=== PATIENT | female | born 1975 | race Caucasian/White ===

== ENCOUNTER → 2019-01-21 | Outpatient (CLI) | payer SELFPAY ==
--- NOTE | 2019-01-21 12:17 | Diagnostic Imaging Report ---
PROCEDURE: MRI lumbar spine. TECHNIQUE: Multiplanar, multisequence MRI of the lumbar spine was performed without contrast. INDICATION: Low back pain, left leg numbness. COMPARISON: There are no prior studies available for comparison. FINDINGS: The T2 parasagittal images show the vertebral body heights and alignment to be generally within normal limits. The intervertebral spaces are fairly well-maintained although there is desiccation of the disc at L4-5 and L5-S1. At the L5-S1 level, there is a focal disc bulge to the left. The disc compresses the left ventral aspect of the thecal sac and narrows the AP diameter to 9.9 mm. There is also mild narrowing of the neural foramen on the left at this level. At the L4-5 level, there is a broad-based disc bulge centrally. The disc flattens the ventral aspect of the thecal sac and narrows the AP diameter to 9.5 mm. There is also mild narrowing of the neural foramen on the left at this level. At the L3-4 level, there is a slight disc bulge centrally. The AP diameter of the thecal sac is narrowed to 10.3 mm. There is no significant neural foraminal narrowing. There is no evidence for spinal stenosis or nerve root encroachment at L1-L2 or L2-3. There is no abnormal signal arising from the cord or the vertebral bodies to indicate an acute abnormality. There is no sign of a paraspinal mass. IMPRESSION: 1. There is degenerative disc disease at L4-5 and L5-S1. There is mild central stenosis at both these levels and there is mild narrowing of the neural foramen on the left as well. 2. The remainder of the lumbar spine is unremarkable for spinal stenosis or nerve root encroachment. 3. There is no sign of an acute bony abnormality or of a cord lesion. Dictated by: Dictated on workstation # [id number]
== END ==
LOC: RAD 10:49
PROVIDERS: ATTEND Nurse Practitioner Family
DX: M51.17 Intervertebral disc disorders with radiculopathy, lumbosacral region (principal); M48.07 Spinal stenosis, lumbosacral region
CPT/HCPCS: 72148

== ENCOUNTER 2019-06-11 14:24 | Emergency (ER) | payer SELFPAY ==
[~2019-06-11] VITALS: Ht 162.6 cm; Wt 127.0 kg
[2019-06-11 14:45] LABS: BASOPHILS % (AUTO) 0 % (0-10); EOSINOPHILS % (AUTO) 0 % (0-10); HEMATOCRIT 42 % (35-52); HEMOGLOBIN 14.2 G/DL (11.5-16.0); LYMPHOCYTES # (AUTO) 2.6 X 10^3 (1.0-4.0); LYMPHOCYTES % (AUTO) 13 % (12-44); MEAN CORPUSCULAR HEMOGLOBIN 29 PG (25-34); MEAN CORPUSCULAR HGB CONC 34 G/DL (32-36); MEAN CORPUSCULAR VOLUME 67 FL (80-99); MEAN PLATELET VOLUME 9.8 FL (7.4-10.4); MONOCYTES % (AUTO) 10 % (0-12); NEUTROPHILS # (AUTO) 15.8 X 10^3 (1.8-7.8); NEUTROPHILS % (AUTO) 77 % (42-75); PLATELET COUNT 477 10^3/uL (130-400); RED CELL DISTRIBUTION WIDTH 15.7 % (10.0-14.5); WHITE BLOOD COUNT 20.6 10^3/uL (4.3-11.0)
[2019-06-11] MEDS ORDERED: ORPHENADRINE 60 MG/2 ML (NORFLEX) AMP IM ONE (14:45)
[2019-06-11 14:46] LABS: BASOPHILS # (AUTO) 0.1 10^3/uL (0.0-0.1); EOSINOPHILS # (AUTO) 0.1 10^3/uL (0.0-0.3)
--- NOTE | 2019-06-11 14:46 | ED Back Pain ---
General Chief Complaint: Back Problems Stated Complaint: LT LEG NUMBNESS Source of Information: Patient, Spouse Exam Limitations: No Limitations History of Present Illness Date Seen by Provider: Jun 11, 2019 Time Seen by Provider: 14:24 Initial Comments The patient presents to ER by private conveyance with chief complaint that yesterday she began experiencing some progressively worsening pain in her right leg radiating around from her hip down the back of her leg to just below the level of her knee. She is followed by [facility] and has a history of chronic back pain for which she uses ibuprofen 800 mg. She used 2 tablets at 4:00 this morning with minimal relief. She has a history of imaging of her back demonstrating bulging disks in her back. She says she cannot afford surgery for them. She says she does not have any recent trauma, falls, car wrecks. She was doing her normal housework when the pain started to come on and it has just gotten worse to the point now she says is very painful to move her leg or stand up. She has sensation in her feet bilaterally although she feels diminished on the right leg and foot. She denies any other medical history. She does not use opiates or muscle relaxants. She was last on steroids about 3 or 4 months ago. She has had an occasional cough nonproductive. Allergies and Home Medications Allergies Coded Allergies: No Known Drug Allergies (Unverified , 06/11/19) Patient Home Medication List Home Medication List Reviewed: Yes Review of Systems Constitutional: No chills, No diaphoresis EENTM: No ear discharge, No ear pain Respiratory: No cough, No short of breath Cardiovascular: No chest pain, No edema Gastrointestinal: No abdominal pain, No nausea, No vomiting Genitourinary: No discharge, No dysuria : No LMP: Jun 01, 2019 Control/STD Prophylaxis: None Past Awkflch-Flxced-Htfhgd Hx Patient Social History Alcohol Use: Denies Use Recreational Drug Use: No Smoking Status: Current Everyday Smoker Type Used: Cigarettes Past Medical History Section (x2) Physical Exam Vital Signs Vital Signs - First Documented 06/11/19 14:30 Temp 98.1 Pulse 101 Resp 22 B/P (MAP) 188/94 (125) Pulse Ox 96 O2 Delivery Room Air Capillary Refill : Height, Weight, BMI Height: '" Weight: lbs. oz. kg; BMI Method: General Appearance: WD/WN, Moderate Distress (tearful) HEENT: Pharynx Normal, Moist Mucous Membranes Neck: Full Range of Motion, Normal Inspection, Non Tender Cardiovascular: Regular Rate, Rhythm, No Edema, Normal Peripheral Pulses Respiratory: No Accessory Muscle Use, No Respiratory Distress Peripheral Pulses: 2+ Dorsalis Pedis (R), 2+ Left Dors-Pedis (L) Back: Normal Inspection, No CVA Tenderness, Vertebral Tenderness (lumbar spine and paravertebral spinous muscles and spasm as well as tender to palpation) Extremity: Normal Capillary Refill, Normal Inspection, Normal Range of Motion, Non Tender, No Calf Tenderness, No Pedal Edema Neurologic/Psychiatric: Alert, Oriented x3, Sensory Deficit (sensation decreased right leg compared to left still able to feel light touch on the feet.), Other (bilateral patellar reflexes 2 out of 4, symmetric) Skin: Normal Color, Warm/Dry Progress/Results/Core Measures Results/Orders Lab Results Laboratory Tests Test 06/11/19 14:30 06/11/19 15:10 Range/Units White Blood Count 20.6 H 4.3-11.0 10^3/uL Red Blood Count 4.84 4.35-5.85 10^6/uL Hemoglobin 14.2 11.5-16.0 G/DL Hematocrit 42 35-52 % Mean Corpuscular Volume 67 L 80-99 FL Mean Corpuscular Hemoglobin 29 25-34 PG Mean Corpuscular Hemoglobin Concent 34 32-36 G/DL Red Cell Distribution Width 15.7 H 10.0-14.5 % Platelet Count 477 H 130-400 10^3/uL Mean Platelet Volume 9.8 7.4-10.4 FL Neutrophils (%) (Auto) 77 H 42-75 % Lymphocytes (%) (Auto) 13 12-44 % Monocytes (%) (Auto) 10 0-12 % Eosinophils (%) (Auto) 0 0-10 % Basophils (%) (Auto) 0 0-10 % Neutrophils # (Auto) 15.8 H 1.8-7.8 X 10^3 Lymphocytes # (Auto) 2.6 1.0-4.0 X 10^3 Monocytes # (Auto) 2.0 H 0.0-1.0 X 10^3 Eosinophils # (Auto) 0.1 0.0-0.3 10^3/uL Basophils # (Auto) 0.1 0.0-0.1 10^3/uL Neutrophils % (Manual) 70 % Lymphocytes % (Manual) 18 % Monocytes % (Manual) 11 % Eosinophils % (Manual) 0 % Basophils % (Manual) 0 % Band Neutrophils 1 % Blood Morphology Comment NORMAL Sodium Level 138 135-145 MMOL/L Potassium Level 3.9 3.6-5.0 MMOL/L Chloride Level 99 98-107 MMOL/L Carbon Dioxide Level 19 L 21-32 MMOL/L Anion Gap 20 H 5-14 MMOL/L Blood Urea Nitrogen 4 L 7-18 MG/DL Creatinine 0.72 0.60-1.30 MG/DL Estimat Glomerular Filtration Rate > 60 BUN/Creatinine Ratio 6 Glucose Level 138 H 70-105 MG/DL Calcium Level 9.5 8.5-10.1 MG/DL Corrected Calcium 9.2 8.5-10.1 MG/DL Total Bilirubin 0.4 0.1-1.0 MG/DL Aspartate Amino Transf (AST/SGOT) 13 5-34 U/L Alanine Aminotransferase (ALT/SGPT) 11 0-55 U/L Alkaline Phosphatase 81 40-136 U/L Total Protein 7.9 6.4-8.2 GM/DL Albumin 4.4 3.2-4.5 GM/DL Urine Color YELLOW Urine Clarity CLEAR Urine pH 7.0 5-9 Urine Specific [place] <1.005 1.016-1.022 Urine Protein NEGATIVE NEGATIVE Urine Glucose (UA) NEGATIVE NEGATIVE Urine Ketones NEGATIVE NEGATIVE Urine Nitrite NEGATIVE NEGATIVE Urine Bilirubin NEGATIVE NEGATIVE Urine Urobilinogen 0.2 NORMAL MG/DL Urine Leukocyte Esterase NEGATIVE NEGATIVE Urine RBC (Auto) 2+ H NEGATIVE Urine RBC 2-5 H /HPF Urine WBC NONE /HPF Urine Squamous Epithelial Cells >50 H /HPF Urine Crystals NONE /LPF Urine Bacteria TRACE /HPF Urine Casts NONE /LPF Urine Mucus NEGATIVE /LPF Urine Culture Indicated NO My Orders Orders - EVELINA WRIGHT Ua Culture If Indicated (06/11/19 14:32) Urine Bedside (06/11/19 14:32) Cbc With Automated Diff (06/11/19 14:32) Comprehensive Metabolic Panel (06/11/19 14:32) Ed Iv/Invasive Line Start (06/11/19 14:32) Ketorolac Injection (Toradol Injection) (06/11/19 14:45) Orphenadrine Injection (Norflex Injectio (06/11/19 14:45) Manual Differential (06/11/19 14:30) Orphenadrine Injection (Norflex Injectio (06/11/19 15:00) Chest 1 View Ap/Pa Only (06/11/19 15:04) Medications Given in ED Current Medications Medications Dose Ordered Sig/Kehinde Route Start Time Stop Time Status Last Admin Dose Admin Ketorolac Tromethamine 30 mg ONCE ONCE IVP 06/11/19 14:45 06/11/19 14:46 DC 06/11/19 14:56 30 MG Orphenadrine Citrate 60 mg ONCE ONCE IV 06/11/19 15:00 06/11/19 15:01 DC 06/11/19 14:58 60 MG Vital Signs/I&O 06/11/19 14:30 Temp 98.1 Pulse 101 Resp 22 B/P (MAP) 188/94 (125) Pulse Ox 96 O2 Delivery Room Air Progress Progress Note #1: Time: 14:39 Progress Note Suspect she is having sciatica/radiculopathy secondary to her chronic back issues. We'll start with Toradol, Norflex and check some basic labs and urinalysis to rule out infection. No other previous history to go off of. Apparently She has presented to the ER in the past for lumbago with sciatica but there is no associated note. MRI from January 2019: Degenerative disc disease at L4-5 and L5-S1. There is mild central stenosis of both these levels and there is mild narrowing of the neural foramen on the left as well. The remainder of the lumbar spine unremarkable for spinal stenosis or nerve root encroachment. There is no sign of acute bony abdomen mildly of her vocal cord lesion. Added a chest x-ray to workup her leukocytosis secondary to cough. She's not been on steroids recently. Would like to use steroids to help calm down her back if there is no evidence of an active infection. Progress Note #2: Time: 15:47 Progress Note She has had significant improvement in her pain. Plan to set her up with Depo- Medrol, azithromycin outpatient for possible bronchitis versus occult pneumonia, NSAIDs Tylenol creams back brace and follow-up with primary care. Diagnostic Imaging Diagonstic Imaging: Xray Plain Films/CT/US/NM/MRI: chest (1v) Comments No acute cardiopulmonary processes noted on one view chest x-ray. NAME: KEZIA MERRITT MED REC#: [id number] PT STATUS: REG ER : 1975 PHYSICIAN: EVELINA WRIGHT MD ADMIT DATE: 06/11/19/ER FS Draft Date of Exam:06/11/19 CHEST 1 VIEW AP/PA ONLY INDICATION: Severe lower back pain. COMPARISON: None. FINDINGS: Single frontal view of the chest demonstrates normal heart size and pulmonary vascularity. The lungs are well aerated and clear. No large pleural effusion or pneumothorax is seen. The visualized osseous structures show no acute abnormalities. IMPRESSION: 1. No acute cardiopulmonary process. Dictated on workstation # [id number] Dict: 06/11/19 1521 Trans: 06/11/19 1525 [id number] Interpreted by: MICHAEL JOSE MD Electronically signed by: Reviewed: Reviewed by Me Departure Impression Primary Impression: Lumbago with sciatica, right side Qualified Codes: M54.41 - Lumbago with sciatica, right side Additional Impression: Bronchitis Disposition: 01 HOME, SELF-CARE Condition: Stable Departure-Patient Inst. Decision time for Depature: 15:28 Referrals: ARVIN BOYER MD (PCP) Primary Care Physician GLADIS BRADLEY APRN (Family) Primary Care Physician Patient Instructions: Low Back Pain (DC), Sciatica (DC) Add. Discharge Instructions: You have some narrowing of the spinal canal that's pressing on the nerves as they leave the back and this has been aggravated the last couple days leading to the pain and tingling that you're feeling. We tried to do anti-inflammatory medications such as steroids, NSAIDs like Na prosyn or ibuprofen and other pain medicines to control your symptoms. The prednisone will take 12-24 hours to start taking an and reducing inflammation. You should take 2 tablets twice a day for 3 days. Then take one tablet of prednisone twice daily for 3 days. Finally one tablet daily for 3 days. This may also help with your bronchitis however if you develop fevers, productive cough or difficulty breathing then you should follow-up with your primary doctor for reevaluation for pneumonia. Instead of taking ibuprofen you should use the prescription naproxen 1 tablet twice daily on a schedule for the next 2 weeks. If you have spasms in your back or feel that your muscles are very tight then you can use the cyclobenzaprine 1 tablet every 8 hours as needed. For breakthrough pain you can use Tylenol 1000 mg every 8 hours as needed. You should use topical creams with Capsaicin oil and/or lidocaine such as Aspercreme, icy hot, Biofreeze etc. If you can get a back brace this can be very helpful for reducing the incidence of muscle spasms in your back and helping your back feel better sooner. Wear it on the days that it helps. All discharge instructions reviewed with patient and/or family. Voiced understanding. Scripts Cyclobenzaprine HCl (Cyclobenzaprine HCl) 10 Mg Tablet 10 MG PO Q8H PRN for SPASMS, #15 TAB 0 Refills Prov: EVELINA WRIGHT 06/11/19 Prednisone (Prednisone) 20 Mg Tab 40 MG PO BID for 9 Days, #21 TAB 0 Refills Prov: EVELINA WRIGHT 06/11/19 Azithromycin (Azithromycin) 250 Mg Tablet 250 MG PO UD, #6 TAB 0 Refills TAKE 2 TABLETS ON DAY ONE THEN TAKE 1 TABLET DAILY FOR FOUR MORE DAYS Prov: EVELINA WRIGHT 06/11/19 Naproxen (Naprosyn) 500 Mg Tablet 500 MG PO BID for 14 Days, #30 TAB 0 Refills Prov: EVELINA WRIGHT 06/11/19 Back Brace (Back Stabilizer) 1 Each Each EACH MC for Back Pain, #1 0 Refills Wear it on the days that it helps. Prov: EVELINA WRIGHT 06/11/19 EVELINA WRIGHT Jun 11, 2019 14:46
[2019-06-11] MEDS: KETOROLAC 30 MG/ML VIAL IVP ONE (14:56)
[2019-06-11 14:57] LABS: ALANINE AMINOTRANSFERASE 11 U/L (0-55); ALBUMIN 4.4 GM/DL (3.2-4.5); ALKALINE PHOSPHATASE 81 U/L (40-136); BILIRUBIN,TOTAL 0.4 MG/DL (0.1-1.0); BUN/CREATININE RATIO 6; CALCIUM 9.5 MG/DL (8.5-10.1); CARBON DIOXIDE 19 MMOL/L (21-32); CHLORIDE 99 MMOL/L (98-107); CREATININE SERUM 0.72 MG/DL (0.60-1.30); GFR ESTIMATED > 60; GLUCOSE 138 MG/DL (70-105); POTASSIUM 3.9 MMOL/L (3.6-5.0); SODIUM 138 MMOL/L (135-145); TOTAL PROTEIN 7.9 GM/DL (6.4-8.2)
[2019-06-11] MEDS: ORPHENADRINE 60 MG/2 ML (NORFLEX) AMP IV ONE (14:58)
[2019-06-11 15:23] LABS: BACTERIA,URINE TRACE /HPF; BILIRUBIN,URINE NEGATIVE (NEGATIVE); CLARITY,URINE CLEAR; COLOR,URINE YELLOW; GLUCOSE, URINE (UA) NEGATIVE (NEGATIVE); KETONES,URINE NEGATIVE (NEGATIVE); LEUKOCYTE ESTERASE ,URINE NEGATIVE (NEGATIVE); NITRITE,URINE NEGATIVE (NEGATIVE); PROTEIN,URINE NEGATIVE (NEGATIVE); SQUAMOUS EPITHELIAL CELL,UR >50 /HPF; UROBILINOGEN,URINE 0.2 MG/DL (NORMAL)
[2019-06-11 15:23] LABS: BAND NEUTROPHILS 1 %; BASOPHILS % (MANUAL) 0 %; EOSINOPHILS % (MANUAL) 0 %; LYMPHOCYTES % (MANUAL) 18 %; MONOCYTES % (MANUAL) 11 %; NEUTROPHILS % (MANUAL) 70 %
[2019-06-11 15:24] LABS: RBC MORPH NORMAL
--- NOTE | 2019-06-11 15:26 | Diagnostic Imaging Report ---
INDICATION: Severe lower back pain. COMPARISON: None. FINDINGS: Single frontal view of the chest demonstrates normal heart size and pulmonary vascularity. The lungs are well aerated and clear. No large pleural effusion or pneumothorax is seen. The visualized osseous structures show no acute abnormalities. IMPRESSION: 1. No acute cardiopulmonary process. Dictated by: Dictated on workstation # [id number]
[2019-06-11] MEDS ORDERED: CYCL10TA9 PO (15:46)
[2019-06-11] MEDS ORDERED: PRD20T PO (15:46)
[2019-06-11] MEDS ORDERED: BACK1EAC9 MC (15:46)
[2019-06-11] MEDS ORDERED: NAPR-1071 PO (15:46)
[2019-06-11] MEDS ORDERED: AZIT250T12 PO (15:46)
[2019-06-11] MEDS: methylPREDNISolone 40 MG/ML (DEPO MEDROL) VIAL IM ONE (15:56)
[2019-06-11 16:05] VITALS: BP 149/83
== END 2019-06-11 16:05 | disposition home or self-care (01) ==
LOC: ER FS 14:24 → EDUNIT# 14:24 → ER FS 16:05
DX: M54.41 Lumbago with sciatica, right side (principal); J40 Bronchitis, not specified as acute or chronic; F17.210 Nicotine dependence, cigarettes, uncomplicated
CPT/HCPCS: 36415; 71045; 80053; 81000; 84703; 85007; 85027

== ENCOUNTER → 2020-12-22 | Outpatient (CLI) | payer SELFPAY ==
[~2020-12-22] MED LIST: AZIT250T12 PO; BACK1EAC9 MC; CYCL10TA9 PO; NAPR-1071 PO; PRD20T PO
--- NOTE | 2020-12-22 17:20 | Diagnostic Imaging Report ---
CLINICAL INDICATION: Patient with low back pain x1 year now with increasing problems with pain on walking recently. EXAM: MRI of the lumbar spine performed without IV contrast. Sagittal T2, sagittal T1, sagittal T2 fat-sat, and axial T2. COMPARISON: MRI of the lumbar spine without contrast dated 01/21/2019. FINDINGS: There is no acute lumbar spine fracture or dislocation. There are no significant Modic degenerative signal changes. The visualized portions of the distal thoracic spinal cord, conus medullaris, and cauda equina nerve roots are unremarkable. The conus medullaris tip is seen at the L1-L2 intervertebral level. There is no significant paraspinal soft tissue abnormality. L1-L2 and L2-L3: Unremarkable. L3-L4: There is [id number]-yx-cfhukwnt bilateral facet arthropathy again seen. There is slight progression of posterior epidural fat. There is mild central canal stenosis which has slightly progressed. Mild bilateral neural foramen narrowing. L4-L5: Stable [id number]-zk-lyenkikr bilateral facet arthropathy. There are small degenerative facet effusions again seen. Again seen diffuse disc bulge with posterior disc herniation which has not significantly changed in size. There is development of annular tear involving the posterior disc herniation component. There is slight progression of posterior epidural fat. There is moderate central canal stenosis which has slightly progressed. L5-S1: Again seen mild diffuse disc bulge with superimposed left paracentral disc extrusion/herniation component. There is moderate loss of disc space height which has not significantly changed. There is tsmo-yg-dftudozs bilateral neural foramen narrowing which is stable. IMPRESSION: 1: Again seen multilevel lower lumbar spine degenerative disc disease which is described in detail above. 2: There is progression of posterior epidural fat at the L3-L4 and L4-L5 levels which contribute to slight progression of central canal stenosis which is moderate at the L4-L5 level and mild at the L3-L4 level. 3: The remainder of the lumbar spine degenerative changes are stable. Dictated by: Dictated on workstation # [id number]
== END ==
LOC: RAD 14:54
PROVIDERS: ATTEND Nurse Practitioner Family
DX: M47.816 Spondylosis without myelopathy or radiculopathy, lumbar region (principal); M51.26 Other intervertebral disc displacement, lumbar region; M51.27 Other intervertebral disc displacement, lumbosacral region; M48.061 Spinal stenosis, lumbar region without neurogenic claudication; M48.07 Spinal stenosis, lumbosacral region
CPT/HCPCS: 72148

== ENCOUNTER 2021-07-24 22:04 | Emergency (ER) | payer MEDICAID, OTHER ==
--- NOTE | 2021-07-24 22:13 | ED Abdominal Pain ---
General Stated Complaint: ABDOMINAL PAIN History of Present Illness Date Seen by Provider: Jul 24, 2021 Time Seen by Provider: 22:08 Initial Comments 46-year-old female presents with some abdominal pain is some skin discoloration of her abdominal wall. Patient reports that she noticed some mild skin discoloration in her lower mid abdominal wall about 3 to 4 days ago. She was given a little bit of abdominal pain. She reports she is worsening abdominal pain especially in the periumbilical and left upper quadrant she reports that she has had decreased ability to eat. She denies blood thinners or diabetes. She is currently on her menstrual cycle. Allergies and Home Medications Allergies Coded Allergies: No Known Drug Allergies (Unverified , 06/11/19) Patient Home Medication List Home Medication List Reviewed: Yes Azithromycin (Azithromycin) 250 Mg Tablet, 250 MG PO UD Prescribed by: EVELINA WRIGHT on 06/11/191545 Back Brace (Back Stabilizer) 1 Each Each, EACH [facility], (DME) Prescribed by: EVELINA WRIGHT on 06/11/19 154 Cephalexin (Cephalexin) 500 Mg Tablet, 500 MG PO QID Prescribed by: ADRIAN OLIVER on 07/25/21 0020 Cyclobenzaprine HCl (Cyclobenzaprine HCl) 10 Mg Tablet, 10 MG PO Q8H PRN for SPASMS Prescribed by: EVELINA WRIGHT on 06/11/19 154 Naproxen (Naprosyn) 500 Mg Tablet, 500 MG PO BID Prescribed by: EVELINA WRIGHT on 06/11/191545 Prednisone (Prednisone) 20 Mg Tab, 40 MG PO BID Prescribed by: EVELINA WRIGHT on 06/11/191545 Review of Systems Review of Systems Constitutional: No chills, No fever; malaise EENTM: No Symptoms Reported Respiratory: Denies Cough, Denies Shortness of Air Cardiovascular: Denies Chest Pain, Denies Lightheadedness Gastrointestinal: See HPI, Abdominal Pain; Denies Nausea; Poor Appetite; Denies Vomiting Genitourinary: See HPI Musculoskeletal: no symptoms reported Skin: see HPI, change in color, rash Past Fccjikh-Qqegig-Zcqpwg Hx Seasonal Allergies Seasonal Allergies: No Past Medical History Surgeries: Yes Section Respiratory: No Cardiac: No Neurological: No Genitourinary: No Gastrointestinal: No Musculoskeletal: Yes Chronic Back Pain Endocrine: No HEENT: No Cancer: No Psychosocial: No Integumentary: No Blood Disorders: No Physical Exam Vital Signs Vital Signs - First Documented 07/24/21 22:33 Temp 36.7 Pulse 105 Resp 20 B/P (MAP) 204/62 (109) Pulse Ox 98 O2 Delivery Room Air Capillary Refill : Height/Weight/BMI Height: 5'4.00" Weight: 280lbs. oz. [id number]; BMI Method:Stated General Appearance: mild distress, obese (Morbid) Respiratory: lungs clear, normal breath sounds Cardiovascular: tachycardia Gastrointestinal: soft, tenderness (Diffuse but greater and periumbilical and right upper quadrant) Extremities: normal range of motion, non-tender Neurologic/Psychiatric: alert, normal mood/affect Skin: other (Moderate area of abnormal discoloration is difficult to tell if his ecchymosis or other just skin discoloration in the lower mid region of her abdomen) Focused Exam Lactate Level 07/24/21 22:20: Lactic Acid Level 2.17*H Lactic Acid Level Laboratory Tests Test 07/24/21 22:20 Lactic Acid Level 2.17 MMOL/L (0.50-2.00) *H Progress/Results/Core Measures Results/Orders Lab Results Laboratory Tests Test 07/24/21 22:10 07/24/21 22:20 Range/Units Urine Color RED H Urine Clarity TURBID H Urine pH 5.0 5-9 Urine Specific Gibson >=1.030 1.016-1.022 Urine Protein 2+ H NEGATIVE Urine Glucose (UA) NEGATIVE NEGATIVE Urine Ketones TRACE H NEGATIVE Urine Nitrite POSITIVE H NEGATIVE Urine Bilirubin NEGATIVE NEGATIVE Urine Urobilinogen 2.0 < = 1.0 MG/DL Urine Leukocyte Esterase 1+ H NEGATIVE Urine RBC (Auto) 3+ H NEGATIVE Urine RBC TNTC H /HPF Urine WBC 0-2 /HPF Urine Squamous Epithelial Cells 2-5 /HPF Urine Crystals PRESENT H /LPF Urine Amorphous Sediment MOD RUBEN URATES H /LPF Urine Bacteria FEW H /HPF Urine Casts NONE /LPF Urine Mucus MODERATE H /LPF Urine Culture Indicated YES White Blood Count 17.2 H 4.3-11.0 10^3/uL Red Blood Count 4.71 3.80-5.11 10^6/uL Hemoglobin 14.0 11.5-16.0 g/dL Hematocrit 42 35-52 % Mean Corpuscular Volume 89 80-99 fL Mean Corpuscular Hemoglobin 30 25-34 pg Mean Corpuscular Hemoglobin Concent 33 32-36 g/dL Red Cell Distribution Width 15.5 H 10.0-14.5 % Platelet Count 485 H 130-400 10^3/uL Mean Platelet Volume 9.7 9.0-12.2 fL Immature Granulocyte % (Auto) 1 % Neutrophils (%) (Auto) 69 42-75 % Lymphocytes (%) (Auto) 22 12-44 % Monocytes (%) (Auto) 8 0-12 % Eosinophils (%) (Auto) 1 0-10 % Basophils (%) (Auto) 1 0-10 % Neutrophils # (Auto) 11.8 H 1.8-7.8 X 10^3 Lymphocytes # (Auto) 3.8 1.0-4.0 X 10^3 Monocytes # (Auto) 1.3 H 0.0-1.0 X 10^3 Eosinophils # (Auto) 0.2 0.0-0.3 10^3/uL Basophils # (Auto) 0.1 0.0-0.1 10^3/uL Immature Granulocyte # (Auto) 0.1 0.0-0.1 10^3/uL Neutrophils % (Manual) 69 % Lymphocytes % (Manual) 25 % Monocytes % (Manual) 6 % Platelet Estimate INCREASED Blood Morphology Comment NORMAL Prothrombin Time 13.6 12.2-14.7 SEC INR Comment 1.0 0.8-1.4 Activated Partial Thromboplast Time 28 24-35 SEC Sodium Level 136 135-145 MMOL/L Potassium Level 4.3 3.6-5.0 MMOL/L Chloride Level 101 98-107 MMOL/L Carbon Dioxide Level 20 L 21-32 MMOL/L Anion Gap 15 H 5-14 MMOL/L Blood Urea Nitrogen 8 7-18 MG/DL Creatinine 0.71 0.60-1.30 MG/DL Estimat Glomerular Filtration Rate 89 BUN/Creatinine Ratio 11 Glucose Level 117 H 70-105 MG/DL Lactic Acid Level 2.17 *H 0.50-2.00 MMOL/L Calcium Level 9.6 8.5-10.1 MG/DL Corrected Calcium 9.5 8.5-10.1 MG/DL Total Bilirubin 0.3 0.1-1.0 MG/DL Aspartate Amino Transf (AST/SGOT) 16 5-34 U/L Alanine Aminotransferase (ALT/SGPT) 17 0-55 U/L Alkaline Phosphatase 104 40-136 U/L C-Reactive Protein 3.23 H <0.50 MG/DL Total Protein 8.0 6.4-8.2 GM/DL Albumin 4.1 3.2-4.5 GM/DL Lipase 18 8-78 U/L My Orders Orders - OLIVER,ADRIAN L DO Cbc No Diff (07/24/21 22:16) Cbc With Automated Diff (07/24/21 22:16) Lactic Acid Analyzer (07/24/21 22:16) Lipase (07/24/21 22:16) Protime With Inr (07/24/21:16) Partial Thromboplastin Time (07/24/21:16) Ua Culture If Indicated (07/24/21 22:16) Crp Fs (07/24/21 22:16) Lactated Ringers (Lr 1000 Ml Iv Solution (07/24/21 22:16) Fentanyl Inj (Sublimaze Injection) (07/24/21 22:16) Ed Iv/Invasive Line Start (07/24/21 22:37) Urine Culture (07/24/21 22:10) Comprehensive Metabolic Panel (07/24/21 22:57) Ct Abdomen/Pelvis W (07/24/21 23:15) Manual Differential (07/24/21 22:20) Iohexol Injection (Omnipaque 350 Mg/Ml 1 (07/24/21 23:30) Received Contrast (Hold Metformin- Contr (07/24/21 23:30) Ns (Ivpb) (Sodium Chloride 0.9% Ivpb Bag (07/24/21 23:30) Fentanyl Inj (Sublimaze Injection) (07/24/21 23:54) Ceftriaxone (Rocephin) (07/25/21 00:15) Medications Given in ED Current Medications Medications Dose Ordered Sig/Kehinde Route Start Time Stop Time Status Last Admin Dose Admin Ceftriaxone Sodium 1000 mg/ Sterile Water 10 ml @ 200 mls/hr ONCE ONCE IV 07/25/21 00:15 07/25/21 00:17 DC 07/25/21 00:42 200 MLS/HR Iohexol 100 ml ONCE ONCE IV 07/24/21 23:30 10/10/21 23:31 DC 07/24/21 23:44 100 ML Sodium Chloride 100 ml ONCE ONCE IV 07/24/21 23:30 07/24/21 23:31 DC 07/24/21 23:44 80 ML Vital Signs/I&O 07/24/21 07/25/21 22:33 00:39 Temp 36.7 36.7 Pulse 105 83 Resp 20 18 B/P (MAP) 204/62 (109) 149/68 Pulse Ox 98 98 O2 Delivery Room Air Room Air 07/25/21 00:00 Intake Total 1000 ml Balance 1000 ml Progress Progress Note : Progress Note Patient with elevated white count and CRP. She does have a urine that is questionable for UTI with a probable abdominal wall cellulitis. Patient has a negative CT scanning of her abdomen. I will treat her with Keflex that would cover both the cellulitis and the UTI. Patient should use Tylenol ibuprofen as needed for pain. Patient stable and discharged Diagnostic Imaging Diagonstic Imaging: CT Plain Films/CT/US/NM/MRI: abdomen Comments CT ABDOMEN/PELVIS W INDICATION: Abdominal pain x4 days. TECHNIQUE: Multiple contiguous axial images were obtained through the abdomen and pelvis after administration of intravenous contrast. Auto Exposure Controls were utilized during the CT exam to meet ALARA standards for radiation dose reduction. All CT scans use one or more of the following dose optimizing techniques: automated exposure control, MA and/or KvP adjustment based on patient size and exam type or iterative reconstruction. There is no prior study for comparison. FINDINGS: The visualized portions of the lung bases are clear. There were no pleural fluid collections. There is no free intraperitoneal air. The liver shows diffuse low-density change compatible with fatty infiltration. Gallbladder appears normal. The spleen, adrenals, and pancreas are normal. The kidneys bilaterally are unremarkable. There is no retroperitoneal mass or adenopathy. There is no ascites or abnormal fluid collection. Visualized bowel loops appear unremarkable. There is no adnexal mass or free fluid. The appendix appears normal. IMPRESSION: No acute process is visualized in the abdomen or pelvis. Diffuse fatty infiltration of the liver is noted. Departure Impression Primary Impression: Cellulitis, abdominal wall Additional Impression: Acute cystitis Qualified Codes: N30.01 - Acute cystitis with hematuria Disposition: HOME, SELF-CARE Condition: Stable Departure-Patient Inst. Referrals: [facility] [place] (PCP) Primary Care Physician GLADIS BRADLEY APRN (Family) Primary Care Physician Patient Instructions: Acute Cystitis (DC), Cellulitis (Skin Infection), Adult ED Add. Discharge Instructions: Follow-up with your primary care provider in 3 to 4 days for recheck of today's symptoms sooner if needed Scripts Cephalexin (Cephalexin) 500 Mg Tablet 500 MG PO QID, #20 TAB 0 Refills Prov: ADRIAN OLIVER DO 07/25/21 ADRIAN OLIVER DO Jul 24, 2021 22:13
[2021-07-24] MEDS ORDERED: LACTATED RINGERS 1,000 ML IV STA (22:16)
[2021-07-24] MEDS ORDERED: fentaNYL INJ 100 MCG/2 ML AMP IVP STA ×2 (22:16→23:54)
[2021-07-24 22:31] LABS: BILIRUBIN,URINE NEGATIVE (NEGATIVE); GLUCOSE, URINE (UA) NEGATIVE (NEGATIVE); KETONES,URINE TRACE (NEGATIVE); LEUKOCYTE ESTERASE ,URINE 1+ (NEGATIVE); NITRITE,URINE POSITIVE (NEGATIVE); PROTEIN,URINE 2+ (NEGATIVE)
[2021-07-24 22:50] LABS: COLOR,URINE RED
[2021-07-24 22:51] LABS: AMORPHOUS SEDIMENT,UR MOD AMOR URATES /LPF; BACTERIA,URINE FEW /HPF; CLARITY,URINE TURBID; RBC,URINE TNTC /HPF; WBC,URINE 0-2 /HPF
[2021-07-24 23:12] LABS: EOSINOPHILS % (AUTO) 1 % (0-10); HEMATOCRIT 42 % (35-52); LYMPHOCYTES % (AUTO) 22 % (12-44); MEAN CORPUSCULAR HEMOGLOBIN 30 pg (25-34); MEAN CORPUSCULAR HGB CONC 33 g/dL (32-36); MEAN CORPUSCULAR VOLUME 89 fL (80-99); MEAN PLATELET VOLUME 9.7 fL (9.0-12.2); MONOCYTES % (AUTO) 8 % (0-12); NEUTROPHILS % (AUTO) 69 % (42-75); PLATELET COUNT 485 10^3/uL (130-400); WHITE BLOOD COUNT 17.2 10^3/uL (4.3-11.0)
[2021-07-24 23:13] LABS: BASOPHILS # (AUTO) 0.1 10^3/uL (0.0-0.1); BASOPHILS % (AUTO) 1 % (0-10); EOSINOPHILS # (AUTO) 0.2 10^3/uL (0.0-0.3); LYMPHOCYTES # (AUTO) 3.8 X 10^3 (1.0-4.0); MONOCYTES # (AUTO) 1.3 X 10^3 (0.0-1.0); NEUTROPHILS # (AUTO) 11.8 X 10^3 (1.8-7.8)
[2021-07-24 23:18] LABS: POTASSIUM 4.3 MMOL/L (3.6-5.0)
[2021-07-24 23:19] LABS: BILIRUBIN,TOTAL 0.3 MG/DL (0.1-1.0); CALCIUM 9.6 MG/DL (8.5-10.1); CREATININE SERUM 0.71 MG/DL (0.60-1.30)
[2021-07-24 23:20] LABS: ALBUMIN 4.1 GM/DL (3.2-4.5)
[2021-07-24 23:25] LABS: PROTHROMBIN TIME PATIENT 13.6 SEC (12.2-14.7)
[2021-07-24] MEDS ORDERED: HOLD METFORMIN - RECEIVED CONTRAST 20 ML VIAL IV SCH (23:30)
[2021-07-24] MEDS ORDERED: IOHEXOL 350 MG/ML 100 ML (OMNIPAQUE 350) VIAL IV ONE (23:30)
[2021-07-24] MEDS ORDERED: NS 100 ML (IVPB) BAG IV ONE (23:30)
[2021-07-24 23:46] LABS: LYMPHOCYTES % (MANUAL) 25 %; MONOCYTES % (MANUAL) 6 %; NEUTROPHILS % (MANUAL) 69 %; PLATELET ESTIMATE INCREASED
[2021-07-24 23:47] LABS: RBC MORPH NORMAL
--- NOTE | 2021-07-25 00:03 | Diagnostic Imaging Report ---
INDICATION: Abdominal pain x4 days. TECHNIQUE: Multiple contiguous axial images were obtained through the abdomen and pelvis after administration of intravenous contrast. Auto Exposure Controls were utilized during the CT exam to meet ALARA standards for radiation dose reduction. All CT scans use one or more of the following dose optimizing techniques: automated exposure control, MA and/or KvP adjustment based on patient size and exam type or iterative reconstruction. There is no prior study for comparison. FINDINGS: The visualized portions of the lung bases are clear. There were no pleural fluid collections. There is no free intraperitoneal air. The liver shows diffuse low-density change compatible with fatty infiltration. Gallbladder appears normal. The spleen, adrenals, and pancreas are normal. The kidneys bilaterally are unremarkable. There is no retroperitoneal mass or adenopathy. There is no ascites or abnormal fluid collection. Visualized bowel loops appear unremarkable. There is no adnexal mass or free fluid. The appendix appears normal. IMPRESSION: No acute process is visualized in the abdomen or pelvis. Diffuse fatty infiltration of the liver is noted. Dictated by: Dictated on workstation # [id number]
[2021-07-25] MEDS ORDERED: cefTRIAXone 1,000 MG in WATER (STERILE) FOR INJECTION 10 ML IV ONE (00:15)
[2021-07-25] MEDS ORDERED: CEPH500T PO (00:20)
[2021-07-25 00:39] VITALS: BP 149/68
== END 2021-07-25 00:47 | disposition home or self-care (01) ==
LOC: EDUNIT# 22:04 → ER FS 22:06
DX: L03.311 Cellulitis of abdominal wall (principal); N30.00 Acute cystitis without hematuria; E66.01 Morbid (severe) obesity due to excess calories; Z68.45 Body mass index [BMI] 70 or greater, adult; Z79.82 Long term (current) use of aspirin
CPT/HCPCS: 36415; 74177; 80053; 81000; 83605; 83690; 85007; 85027; 85610; 85730; 86141; 87088

== ENCOUNTER → 2023-01-11 | Outpatient (CLI) | payer MEDICAID ==
[~2023-01-11] MED LIST changes: +CEPH500T PO; +CYCL10TA25 PO; -CYCL10TA9 PO
--- NOTE | 2023-01-11 12:01 | Diagnostic Imaging Report ---
PROCEDURE: MRI lumbar spine. TECHNIQUE: Multiplanar, multisequence MRI of the lumbar spine was performed without contrast. INDICATION: M54.42 COMPARISON: 12/22/2020 FINDINGS: For the purposes of this exam, last well-formed disc space is noted as the L5-S1 level. Evaluation of static alignment shows slight grade 1 retrolisthesis at L4-5. There is no evidence of jumped facets. Vertebral body heights are maintained. There is no acute fracture. Evaluation marrow signal demonstrates Modic type I change involving the adjacent endplates at L5-S1 on the left. There is also multilevel intervertebral disc height loss greatest at L4-L5 and L5-S1. Visualized portions of distal cord are unremarkable. Conus terminates at approximately the T12-L1 level. No abnormal intrathecal filling defects are seen. Pre and paravertebral soft tissue structures are unremarkable. Axial images demonstrate the following: T12-L1 through L2-L3: There is no large disc bulge or focal protrusion. There is no significant spinal canal or neuroforaminal stenosis. L3-L4: There is slight broad-based posterior disc bulge and bilateral ligamentum flavum laxity and facet arthropathy. As a result, there is minimal flattening the anterior thecal sac and minimal narrowing of bilateral neural foramen. L4-L5: There is broad-based posterior disc bulge and bilateral ligamentum flavum laxity and facet arthropathy. As a result, there is moderate stenosis of the spinal canal and mild narrowing of bilateral neural foramen. L5-S1: There is broad-based posterior disc bulge. There is however no significant spinal canal or neuroforaminal stenosis. IMPRESSION: 1. Multiple degenerative changes of the lumbar spine greatest the L4-L5 level as above. 2. No acute fracture or dislocation. Dictated by: Dictated on workstation # [id number]
--- NOTE | 2023-01-11 15:33 | Diagnostic Imaging Report ---
PROCEDURE: US Bilateral lower extremity arterial. TECHNIQUE: Multiple real-time grayscale images are obtained through both lower extremity arterial systems with color Doppler imaging and color Doppler spectral analysis. INDICATION: Claudication COMPARISON: None FINDINGS: Right: common femoral artery 61 cm/s Proximal PFA: 76 cm a 2nd Proximal SFA: 62 cm/s Mid SFA 54 cm/s Distal SFA 50 cm/s Proximal popliteal artery: 23 cm/s Distal CORONARY CARE UNIT NURSE 14 cm/s Dorsalis pedis 11.4 cm Proximal NILS 14.4 cm/s Left Common femoral artery: 45 cm/s Proximal PFA 57 cm/s Proximal SFA 44 cm/s Mid SFA 35 cm/s Distal SFA 31 cm/s Proximal popliteal 13 cm/s Distal CORONARY CARE UNIT NURSE 20 cm/s Dorsalis pedis 80 cm/s Proximal NILS 6 cm/s Monophasic flow seen throughout the bilateral lower extremities. Scattered atherosclerotic changes within the lower extremity arteries without any focal of velocity elevation. Bilateral monophasic flow suggests inflow stenosis possibly involving the aorta or iliac arteries. Recommend CTA of the abdomen and pelvis for further evaluation. Dictated by: Dictated on workstation # [id number]
== END ==
LOC: RAD 09:10
PROVIDERS: ATTEND Physician Assistant
DX: M51.26 Other intervertebral disc displacement, lumbar region (principal); M51.27 Other intervertebral disc displacement, lumbosacral region; M48.061 Spinal stenosis, lumbar region without neurogenic claudication
CPT/HCPCS: 72148; 93925

== ENCOUNTER → 2023-02-05 | Outpatient (CLI) | payer MEDICAID ==
[~2023-02-05] MED LIST changes: +IOHEXOL 350 MG/ML 100 ML (OMNIPAQUE 350) VIAL IV ONE; +NS 100 ML (IVPB) BAG IV ONE
--- NOTE | 2023-02-05 10:23 | Diagnostic Imaging Report ---
Procedure: CT Angio Abdomen/Pelvis with. Technique: Multiple contiguous axial images were obtained through the abdomen and pelvis after the uneventful bolus administration of intravenous contrast. Sagittal and coronal MIP reconstructions with then performed. All CT scans use one or more of the following dose optimizing techniques: automated exposure control, MA and/or KvP adjustment based on patient size and exam type or iterative reconstruction. Date: February 05, 2023. Indication: 48-year-old female, claudication, peripheral vascular disease. Decreased blood flow in both lower extremities. Numbness and weakness of the legs. Comparison: CT abdomen and pelvis with intravenous contrast July 24, 2021. Findings: The visualized portions of the lung bases are clear. The heart is not enlarged. There is no identified pericardial effusion. The celiac axis and superior mesenteric arteries are widely patent. There are 2 right-sided renal arteries. There are 2 left renal arteries. The bilateral renal arteries are widely patent. There are atherosclerotic calcifications present. There is no aneurysmal dilation of the abdominal aorta. Inferior mesenteric artery is patent. Distal to the origin of the inferior mesenteric artery, there is occlusion of the abdominal aorta just prior to its bifurcation. The right common iliac artery is occluded. There is reconstitution of blood flow at the level of the right internal and external iliac arteries. The right internal and external iliac arteries are patent. There is also complete occlusion of the left common femoral artery with reconstitution of blood flow to the left internal iliac artery just beyond its origin and reconstitution of blood flow in the left external iliac artery just prior to the level of the left common femoral artery. The imaged portions of the left and right superficial and deep femoral arteries are patent. The liver is normal in size and contour. The gallbladder is unremarkable. There is no biliary ductal dilation. Unremarkable evaluation of the pancreas. The spleen is normal in size. The adrenal glands are unremarkable. The intestinal tract is not distended. There is no free intraperitoneal air. There is no drainable fluid collection. There is no free fluid in the pelvis. There is no identified abnormally enlarged lymph node in the abdomen or pelvis which meets CT size criteria for adenopathy. There is moderate disc height loss at L5-S1. Impression: 1. 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 2. 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 3. Complete occlusion of the left common iliac artery with reconstitution of blood flow in the left internal iliac artery just beyond its origin and in the distal aspect of the left external iliac artery just prior to the level of the left common femoral artery. 4. Widely patent celiac axis, superior mesenteric artery, bilateral renal arteries, and inferior mesenteric artery. Dictated by: Dictated on workstation # [id number]
== END ==
LOC: RAD 09:05
PROVIDERS: ATTEND Physician Assistant
DX: I74.5 Embolism and thrombosis of iliac artery (principal); I74.09 Other arterial embolism and thrombosis of abdominal aorta; I74.3 Embolism and thrombosis of arteries of the lower extremities
CPT/HCPCS: 74174